=== PATIENT | female | born 1995 | race African-American/Black ===

== ENCOUNTER 2017-01-12 10:10 | Emergency (ER) | payer SELFPAY ==
[~2017-01-12] VITALS: Ht 170.2 cm; Wt 145.0 kg
[2017-01-12 10:12] VITALS: BP 132/91; PULSE 112; RESP 16; TEMP 98.2; O2SAT 98
[2017-01-12] MEDS ORDERED: LORA1TAB12 PO (10:27)
[2017-01-12] MEDS ORDERED: BUPR100T4 PO (10:27)
--- NOTE | 2017-01-12 10:36 | PD ---
HPI Chief Complaint: Suicide Ideation/Attempt Time Seen by Provider: 10:25 Travel History International Travel<30 days: No Contact w/Intl Traveler<30days: No Traveled to known affect area: No History of Present Illness HPI 31-year-old female complains of depression and suicidal. Patient has history of long-standing depression since she was 12. Patient has been treated in [place] by her psychiatrist. Patient moved to [place] recently and has not been taking her medication for the past month. Patient has history of anxiety and depression. Patient has history of cutting herself in the past. Patient denies any medical problem. Patient denies any headache. Patient denies any chest pain or shortness of breath. Patient denies abdominal pain. Patient denies any vaginal discharge or bleeding. PFSH Past Medical History Anxiety: Yes Depression: Yes Diminished Hearing: No Immunizations Current: Yes ?: Not LMP: 01/09/17 Past Surgical History Surgical History: No Previous Surgery Social History Alcohol Use: No Tobacco Use: No Substance Use: No Allergies-Medications (Allergen,Severity, Reaction): Coded Allergies: No Known Allergies (Unverified , 01/12/17) Reported Meds & Prescriptions Reported Meds & Active Scripts Active Reported Bupropion HCl 100 Mg Tab 300 Mg PO HS Lorazepam 1 Mg Tab 1 Mg PO DAILY PRN Review of Systems General / Constitutional: No: Fever Eyes: No: Visual changes HENT: No: Headaches Cardiovascular: No: Chest Pain or Discomfort Respiratory: No: Shortness of Breath Gastrointestinal: No: Abdominal Pain Genitourinary: No: Dysuria Musculoskeletal: No: Pain Skin: No Rash Neurologic: No: Weakness Psychiatric: Positive: Anxiety, Depression, Suicidal Ideations Endocrine: No: Polydipsia Hematologic/Lymphatic: No: Easy Bruising Physical Exam Narrative GENERAL: Well-nourished, well-developed patient. SKIN: Focused skin assessment warm/dry. HEAD: Normocephalic. EYES: No scleral icterus. No injection or drainage. NECK: Supple, trachea midline. No JVD or lymphadenopathy. CARDIOVASCULAR: Regular rate and rhythm without murmurs, gallops, or rubs. RESPIRATORY: Breath sounds equal bilaterally. No accessory muscle use. GASTROINTESTINAL: Abdomen soft, non-tender, nondistended. MUSCULOSKELETAL: No cyanosis, or edema. BACK: Nontender without obvious deformity. No CVA tenderness. Neurologic exam normal. Data Data Last Documented VS Vital Signs Date Time Temp Pulse Resp B/P (MAP) Pulse Ox O2 Delivery O2 Flow Rate FiO2 01/12/17 12:00 97 17 100 Room Air 01/12/17 10:12 98.2 Orders Orders Complete Blood Count With Diff (01/12/17 10:32) Comprehensive Metabolic Panel (01/12/17 10:32) Ed Urine Pregnancytest Poc (01/12/17 10:32) Psych Screen (01/12/17 10:32) Drug Screen, Random Urine (01/12/17 10:32) Diet Regular Basic (01/12/17 Lunch) Labs Laboratory Tests Test 01/12/17 11:10 White Blood Count 12.6 TH/MM3 Red Blood Count 4.33 MIL/MM3 Hemoglobin 13.1 GM/DL Hematocrit 39.7 % Mean Corpuscular Volume 91.6 FL Mean Corpuscular Hemoglobin 30.3 PG Mean Corpuscular Hemoglobin Concent 33.1 % Red Cell Distribution Width 14.5 % Platelet Count 467 TH/MM3 Mean Platelet Volume 8.0 FL Neutrophils (%) (Auto) 52.3 % Lymphocytes (%) (Auto) 31.7 % Monocytes (%) (Auto) 6.7 % Eosinophils (%) (Auto) 7.7 % Basophils (%) (Auto) 1.6 % Neutrophils # (Auto) 6.6 TH/MM3 Lymphocytes # (Auto) 4.0 TH/MM3 Monocytes # (Auto) 0.8 TH/MM3 Eosinophils # (Auto) 1.0 TH/MM3 Basophils # (Auto) 0.2 TH/MM3 CBC Comment DIFF FINAL Differential Comment Blood Urea Nitrogen 8 MG/DL Creatinine 0.83 MG/DL Random Glucose 123 MG/DL Total Protein 8.1 GM/DL Albumin 3.8 GM/DL Calcium Level 8.9 MG/DL Alkaline Phosphatase 70 U/L Aspartate Amino Transf (AST/SGOT) 26 U/L Alanine Aminotransferase (ALT/SGPT) 35 U/L Total Bilirubin 0.2 MG/DL Sodium Level 139 MEQ/L Potassium Level 3.8 MEQ/L Chloride Level 106 MEQ/L Carbon Dioxide Level 27.4 MEQ/L Anion Gap 6 MEQ/L Estimat Glomerular Filtration Rate 103 ML/MIN Urine Opiates Screen NEG Urine Barbiturates Screen NEG Urine Amphetamines Screen NEG Urine Benzodiazepines Screen NEG Urine Cocaine Screen NEG Urine Cannabinoids Screen [facility] Medical Decision Making Medical Screen Exam Complete: Yes Emergency Medical Condition: Yes Interpretation(s) 1335 PM. CBC WBC 12.6. Platelet 467. Normal differential. CMP within normal limit. Glucose 123. Urine drug screen negative. Differential Diagnosis Differential diagnosis including depression, suicidal. Narrative Course 21-year-old female with depression and suicidal. 1336 PM. Patient is medically cleared for psychiatric evaluation and disposition. Phong Munoz MD Jan 12, 2017 10:36
[2017-01-12 11:40] LABS: AUTOMATED NEUTROPHIL # 6.6 TH/MM3 (1.8-7.7); BASOPHIL # 0.2 TH/MM3 (0-0.2); BASOPHIL % 1.6 % (0.0-2.0); EOSINOPHIL % 7.7 % (0.0-4.0); HEMATOCRIT 39.7 % (35.0-46.0); HEMO FLAGS DIFF FINAL; LYMPH % 31.7 % (9.0-44.0); MEAN CELL VOLUME 91.6 FL (80.0-100.0); MEAN CORPUSCULAR HEMOGLOBIN 30.3 PG (27.0-34.0); MEAN CORPUSCULAR HGB CONC 33.1 % (32.0-36.0); MONO % 6.7 % (0.0-8.0); NEUT % 52.3 % (16.0-70.0); PLATELET COUNT 467 TH/MM3 (150-450); RED BLOOD COUNT 4.33 MIL/MM3 (4.00-5.30); RED CELL DISTRIBUTION WIDTH 14.5 % (11.6-17.2); WHITE BLOOD COUNT 12.6 TH/MM3 (4.0-11.0)
[2017-01-12 12:00] VITALS: PULSE 97; RESP 17; O2SAT 100
[2017-01-12 12:09] LABS: ANION GAP 6 MEQ/L (5-15); BICARBONATE 27.4 MEQ/L (21.0-32.0); CHLORIDE 106 MEQ/L (98-107); GLOMERULAR FILTRATION RATE 103 ML/MIN (>89); POTASSIUM 3.8 MEQ/L (3.5-5.1); SODIUM (NA) 139 MEQ/L (136-145)
[2017-01-12 12:27] LABS: ALKALINE PHOSPHATASE 70 U/L (45-117); ALT (GPT) 35 U/L (10-53); AST (GOT) 26 U/L (15-37); BLOOD UREA NITROGEN 8 MG/DL (7-18); TOTAL BILIRUBIN ADULT 0.2 MG/DL (0.2-1.0)
[2017-01-12 14:36] VITALS: BP 123/65; PULSE 94; RESP 17; O2SAT 100
--- NOTE | 2017-01-12 17:24 | PD ---
History of Present Illness Chief Complaint: Suicide Ideation/Attempt Time Seen by Provider: 12:30 Travel History International Travel<30 Days: No Contact w/Intl Traveler<30days: No Known affected area: No Legal Status Legal Status: Hensley Act Hensley Act Signed By: SINDHU Gallego History of Present Illness: History of Present Illness 21-year-old female with reported history of depression and anxiety who initially presents on a voluntary status for evaluation of complaints of depression and recent suicidal gesture. Her mother Dante Wilson is at bedside and reports that last night the patient reported she took # 10 Ativan 1 mg pills. The patient admits to taking such and states " I really didn't care if I woke up or not". Patient also has history of self injurious behavior and in fact superficially cut her wrists last night. Mother reports that she had one previous attempt 6 weeks ago and she took Ativan with alcohol and slept for 2 days. The patient has not had psychiatric treatment and has been out of medication since she moved to [place] from [place] 2 months ago. She endorses increase sleep up to 12 hours per day, increased appetite,depressed mood. EMR reviewed. No previous contact with [facility]. Current toxicology is negative. Patient is seen. Mother at bedside for part of visit. Mother is also interviewed without the patient present. She is alert, oriented , obese female. She is superficially cooperative. Speech is clear and logical. No psychosis and no abner. Mood is depressed. She admits to having taken the Ativan last night. Also admits to previous attempt but minimizes these episodes. Mother also reports she has been engaging in risky behavior such as going to a man's house whom she met over the internet, mixing her medication with alcohol. Mother is concerned for her safety if she were to be discharged. [facility] Past Medical History Anxiety: Yes Depression: Yes Diminished Hearing: No Immunizations Current: Yes ?: Not LMP: 01/09/17 Past Surgical History Surgical History: No Previous Surgery Psychiatric History Psychiatric History Hx Psychiatric Treatment: Anxiety, depression since age 12 years. has been on medication for many years. No previous hospitalizations. History of Inpatient Treatment: No Guns or firearms in home: No Social History Single female. recently moved to [place] from [place].. Lives with her mother. Completed high school. Unemployed. Hx Alcohol Use: No Hx Tobacco Use: No Hx Substance Use: Yes (1 PPD cigarettes, ETOH 4x/month-1 bottle of wine) Substance Use Type: Alcohol, Nicotine/Cigarettes Hx of Substance Use Treatment: No Allergies-Medications (Allergen,Severity, Reaction): Coded Allergies: No Known Allergies (Unverified , 01/12/17) Reported Meds & Prescriptions Reported Meds & Active Scripts Active Reported Bupropion HCl 100 Mg Tab 300 Mg PO HS Lorazepam 1 Mg Tab 1 Mg PO DAILY PRN Review of Systems Psychiatric: COMPLAINS OF: Anxiety, Depression, Suicidal Ideation Except as stated in HPI: all other systems reviewed are Neg Mental Status Examination Appearance: Appropriate Consciousness: Alert Orientation: x4 Motor Activity: Normal gait Speech: Unremarkable Language: Adequate Fund of Knowledge: Adequate Attention and Concentration: Adequate Memory: Unremarkable Mood: Sad Affect: Sad Thought Process & Associations: Intact Thought Content: Appropriate Hallucination Type: None Delusion Type: None Suicidal Ideation: Yes Suicidal Plan: No Suicidal Intention: No Homicidal Ideation: No Homicidal Plan: No Homicidal Intention: No Insight: Fair Judgment: Impulsive MDM Medical Decision Making Medical Record Reviewed: Yes Assessment/Plan 21-year-old female with reported history of depression and anxiety who initially presents on a voluntary status for evaluation of complaints of depression and recent suicidal gesture. Her mother Dante Wilson is at bedside and reports that last night the patient reported she took # 10 Ativan 1 mg pills. The patient admits to taking such and states " I really didn't care if I woke up or not". Patient also has history of self injurious behavior and in fact superficially cut her wrists last night. Mother reports that she had one previous attempt 6 weeks ago and she took Ativan with alcohol and slept for 2 days. The patient has not had psychiatric treatment and has been out of medication since she moved to [place] from [place] 2 months ago. She endorses increase sleep up to 12 hours per day, increased appetite,depressed mood. Patient is placed under a Hensley act due to potential of harm to self. She will be placed on [facility] list for transfer there once a bed becomes available. Orders Orders Complete Blood Count With Diff (01/12/17 10:32) Comprehensive Metabolic Panel (01/12/17 10:32) Ed Urine Pregnancytest Poc (01/12/17 10:32) Psych Screen (01/12/17 10:32) Drug Screen, Random Urine (01/12/17 10:32) Diet Regular Basic (01/12/17 Lunch) Diet Regular Basic (01/12/17 Dinner) Results Vital Signs Date Time Temp Pulse Resp B/P (MAP) Pulse Ox O2 Delivery O2 Flow Rate FiO2 01/12/17 14:46 01/12/17 14:36 94 17 123/65 (84) 100 Room Air 01/12/17 13:00 100 Room Air 01/12/17 12:00 97 17 100 Room Air 01/12/17 10:12 98.2 112 16 132/91 (105) 98 Laboratory Tests Test 01/12/17 11:10 White Blood Count 12.6 Red Blood Count 4.33 Hemoglobin 13.1 Hematocrit 39.7 Mean Corpuscular Volume 91.6 Mean Corpuscular Hemoglobin 30.3 Mean Corpuscular Hemoglobin Concent 33.1 Red Cell Distribution Width 14.5 Platelet Count 467 Mean Platelet Volume 8.0 Neutrophils (%) (Auto) 52.3 Lymphocytes (%) (Auto) 31.7 Monocytes (%) (Auto) 6.7 Eosinophils (%) (Auto) 7.7 Basophils (%) (Auto) 1.6 Neutrophils # (Auto) 6.6 Lymphocytes # (Auto) 4.0 Monocytes # (Auto) 0.8 Eosinophils # (Auto) 1.0 Basophils # (Auto) 0.2 CBC Comment DIFF FINAL Differential Comment Blood Urea Nitrogen 8 Creatinine 0.83 Random Glucose 123 Total Protein 8.1 Albumin 3.8 Calcium Level 8.9 Alkaline Phosphatase 70 Aspartate Amino Transf (AST/SGOT) 26 Alanine Aminotransferase (ALT/SGPT) 35 Total Bilirubin 0.2 Sodium Level 139 Potassium Level 3.8 Chloride Level 106 Carbon Dioxide Level 27.4 Anion Gap 6 Estimat Glomerular Filtration Rate 103 Urine Opiates Screen NEG Urine Barbiturates Screen NEG Urine Amphetamines Screen NEG Urine Benzodiazepines Screen NEG Urine Cocaine Screen NEG Urine Cannabinoids Screen NEG Diagnosis Primary Impression: Major depressive disorder, recurrent Disposition: 65 DISC TO PSYCH CARE FACILITY Condition: Fair Problem Qualifiers Primary Impression: Major depressive disorder, recurrent Qualified Codes: F33.1 - Major depressive disorder, recurrent, moderate Belkys Weiss [facility] Jan 12, 2017 17:24
== END 2017-01-12 18:10 ==
LOC: NEPD 10:10 → NEPJ 18:10
DX: Z02.89 Encounter for other administrative examinations (principal); F33.1 Major depressive disorder, recurrent, moderate; Z79.899 Other long term (current) drug therapy
CPT/HCPCS: 80053; 80307; 84703; 85025; 99284